=== PATIENT | female | born 1975 | race Caucasian/White ===

== ENCOUNTER 2019-04-20 16:46 | Emergency (ER) | payer BC ==
[2019-04-20] MEDS ORDERED: LORazepam 1 MG Tab PO ONE (17:25)
[2019-04-20] MEDS ORDERED: Ketorolac 60 MG/2 ML SDV IM ONE (17:25)
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
[2019-04-20] MEDS ORDERED: Codeine/guaiFENesin 100mg-10 MG/5 ML Syrup 10 ML Cup PO ONE (17:41)
== END 2019-04-20 18:11 | disposition home or self-care (01) ==
LOC: JP.ED 16:46
DX: I10 Essential (primary) hypertension (principal); F41.9 Anxiety disorder, unspecified; F32.9 Major depressive disorder, single episode, unspecified; F17.210 Nicotine dependence, cigarettes, uncomplicated; Z79.899 Other long term (current) drug therapy; Z88.0 Allergy status to penicillin; Z88.8 Allergy status to other drugs, medicaments and biological substances
CPT/HCPCS: 96372; 99283; A9270; J1885

== ENCOUNTER 2020-01-20 14:40 | Emergency (ER) | payer BC, OTHER ==
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
== END 2020-01-20 15:51 | disposition home or self-care (01) ==
LOC: JP.ED 14:40
DX: R51 Headache (principal); F07.81 Postconcussional syndrome; E66.9 Obesity, unspecified; Z88.0 Allergy status to penicillin; Z88.8 Allergy status to other drugs, medicaments and biological substances; Z68.37 Body mass index [BMI] 37.0-37.9, adult
CPT/HCPCS: 99283